=== PATIENT | female | born 1975 | race Asian ===

== ENCOUNTER 2024-05-31 12:52 | Outpatient (CLI) | payer MEDICAID | END 2024-05-31 23:59 | disposition home or self-care (01) | LOC: MRI02 12:52 | PROVIDERS: ATTEND Nurse Practitioner | DX: M47.26 Other spondylosis with radiculopathy, lumbar region (principal); M47.818 Spondylosis without myelopathy or radiculopathy, sacral and sacrococcygeal region; M51.16 Intervertebral disc disorders with radiculopathy, lumbar region; M48.061 Spinal stenosis, lumbar region without neurogenic claudication | CPT/HCPCS: 72148 ==